=== PATIENT | male | born 1945 | race Caucasian/White ===

== ENCOUNTER 2016-10-03 12:32 | Day surgery (SDC) | payer MEDICARE, OTHER ==
[~2016-10-03] VITALS: Ht 190.5 cm; Wt 111.1 kg
--- NOTE | 2016-10-03 11:16 | PCM.HPANE ---
Patient Data Surgeon Admitting Provider: Attending Provider:Jaime Bourgeois MD Primary Care Physician:Nayeli Cook MD Other Provider:Fernanda Fair[place]ingham Anesthesia Reason for Visit Tubular Adenoma Of Colon Ht/WT & BMI Body Mass Index Allergies Coded Allergies: No Known Allergies (Verified Allergy, Unknown, 04/30/14) Past Anesthesia History Anesthesia History: Denies:: Abnormal Airway (HX SPASMODIC DYSPHONIA), Anesthesia Reactions, Malignant Hyperthermia Diabetes History Hx Diabetes?: No MRSA MRSA: No Medications Blood Thinner: Aspirin Reported Medications Triamcinolone Acet (Triamcinolone Acetonide Cream)1 Applic/0.25 Gm Cr1 Applic EXT BID #60 GM Ref 0 10/02/16 Aspirin (Aspir 81)81 Mg Tablet.dr81 Mg PO DAILY Ref 0 04/29/14 Simvastatin 20 Mg [id number] Mg PO HS 30 Days Ref 0 04/29/14 Clotrimazole (Antifungal)30 Gm Cream..g.30 Gm TP BID 04/29/14 Methocarbamol (Robaxin-750)750 Mg [id number] Mg PO TID PRN For Spasm 04/29/14 Ca Cmb No.1/Vit D3/B-6/FA/B12 (Vitamin D3 1,000 Unit Tablet)1 Each Tablet1,000 Each PO DAILY 30 Days 04/29/14 Garlic (Odorless Garlic)1,250 Mg Tablet1,250 Mg PO DAILY 04/29/14 Multivitamin (Daily Vitamin)1 Each Tablet1 Each PO DAILY 04/29/14 Discontinued Reported Medications Hydrocodone-Acetaminophen 5-325 mg 1 Each Tablet1 Each PO Q6 PRN For Pain Ref 0 04/29/14 History History of ENT Problems?: Yes HEENT History: Denies:: Abnormal Airway (HX SPASMODIC DYSPHONIA) Hx of Heart Problems?: Yes Cardiovascular History: Denies:: Congestive Heart Failure Hypertension (HYPERLIPIDEMIA) Hx of Respiratory Problem?: No Respiratory History: Denies:: Tuberculosis Use of C-PAP Machine Hx Neurologic Problems?: No Hx of GI Problems?: Yes Gastrointestinal History: Denies:: Rectal Bleeding (HX COLON POLYPS, HEMORRHOIDS) Hx of Problems?: Yes Male Hx: Positive for:: Prostate Problems (BPH W/ LUTS) Denies:: Scrotal Mass Testicular Surgery Skin History: Positive for:: History Skin Disorders? (02/2014 INGROWN TOENAIL ) Denies:: Pressure Ulcers Hx Musculoskeletal Problems?: Yes Musculoskeletal History: Denies:: Back Injury (C/OF BACK PAIN HX COMPRESSION FX X2) Hx Surgeries?: Yes (APPTom,LAMI) Hx Any Other Health Problems?: Yes Other History: Denies:: Cancer Endocrine Disease Hospitalization Thyroid Disease History Blood Transfusions: Denies:: Blood Transfusions Hx Diabetes: No Hx Alcohol Use: Yes (COUPLE COCKTAILS DAILY)Hx Substance Use: NoHave You Smoked inLast 12 mo: No Stop/Bang Treated for Sleep Apnea?: No Do You Have a CPAP Machine?: No S-Snoring: Do You Snore Loudly: No T-Tired: feel tired, fatigued: No P-Blood Pressure: treated: No B- Body Mass Index > 35 kg/m2: No A- Age over 50: Yes N- Neck Large Circumference: Yes G- Gender Male: Yes LOIS Risk Assessment: High Risk, =/>3 Yes Risk Assessment Category Category 1A: Patient has history of documented sleep apnea, and HAS NOT received any narcotic, sedative or anesthesia administration during this stay. Category 1B: Patient has history of documented sleep apnea, and HAS received any narcotic , sedative or anesthesia administration during this stay Category 2: Patient has SUSPECTED Obstructive Sleep Apnea, and HAS received any narcotic , sedative or anesthesia administration during this stay. Category 3: Patient has SUSPECTED Obstructive Sleep Apnea and HAS NOT received narcotic, sedative or anesthesia administration during this stay. Category 4: Outpatient in Procedural Areas with known sleep apnea or who screen positive for High Risk via the STOP/BANG questionnaire. Exam Exam General Appearance: Alert, Oriented X3, Cooperative, No Acute Distress HEENT/AIRWAY: MP 3 Lungs: Clear to Auscultation, Normal Air Movement Heart: Exam Unremarkable, Regular Rate/Rhythm, No Murmurs/Rubs/Gallops Plan Impression Patient chart reviewed, patient interviewed and anesthestic plan with risks, benefits, and alternatives discussed, and informed consent obtained. NPO Status: 05/03/15 0330 water ASA Physical Status: ASA2 Mod Systemic Disease Anesthetic Plan: MAC Bene/Risks/Altern/Consents: Yes HP Complete Prior to Induction: Yes Marv Bundy MD Oct 03, 2016 11:16
[~2016-10-03 12:32] MED LIST: ASPI-628 PO; CA C1TAB28 PO; CLOT30CR TP; GARL1250 PO; KEN25CR EXT; Lactated Ringer's 1,000 ML IV ONE; METH-313 PO; MULT-56 PO; SIMV20TA4 PO
[2016-10-03] MEDS ORDERED: fentaNYL-PF 50 mCg/mL 2 mL Inj ONE (12:33)
[2016-10-03] MEDS ORDERED: Propofol 10,000 mCg/mL 20 mL Inj ONE (12:33)
[2016-10-03 12:53] VITALS: BP 149/102; PULSE 80; RESP 14; O2SAT 99
[2016-10-03] MEDS ORDERED: Lactated Ringer's 1,000 ML IV SCH (14:23)
[2016-10-03] MEDS ORDERED: MetoCLOpramide 5 mg/mL 2 mL Inj IVPUSH PRN (14:25)
[2016-10-03] MEDS ORDERED: Ondansetron 2 mg/mL 2 mL Inj IVPUSH PRN (14:25)
[2016-10-03 15:05] VITALS: BP 117/81; PULSE 63; RESP 16; O2SAT 95
[2016-10-03 15:14] VITALS: BP 119/83; PULSE 74; RESP 16; O2SAT 95
--- NOTE | 2016-10-03 15:20 | PCM.ANEP1 ---
Post Anesthesia Phase 1 PACU Phase 1 Assessment Vital Signs Vital Signs Date Time Temp Pulse Resp B/P Pulse Ox O2 Delivery O2 Flow Rate FiO2 10/03/16 15:14 74 16 119/83 95 Room Air 10/03/16 15:05 63 16 117/81 95 Room Air 10/03/16 12:53 36.5 80 14 149/102 99 Room Air Anesthetic Administered: MAC Level of Alertness: Awake, talking SHEPARD's with Equal Strength: Yes Pain: No Nausea or Vomiting: No Oxygen Delivery: Room Air Lungs: Clear to Auscultation, Normal Air Movement Dermatome Level: Full Sensation Marv Bundy MD Oct 03, 2016 15:20
--- NOTE | 2016-10-03 15:25 | PCM.ANEP2 ---
Post Anesthesia Evaluation ASA/CMS Post Anesthesia VS in Patient's Normal Range?: Yes Resp Stable; Airway Patent?: Yes CV Function & Hydration Stable: Yes Mental Status Recovered?: Yes Pain control Satisfactory?: Yes N/V Control Satisfactory?: Yes Marv Bundy MD Oct 03, 2016 15:25
--- NOTE | 2016-10-03 20:14 | ENDO ---
[address] [address] ENDOSCOPY PROCEDURE PATIENT: LINDA MCDONOUGH : 1945 MR#: [id number] ADMIT: 10/03/2016 JOB ID: [id number] DATE: 10/03/2016 PRIMARY CARE PHYSICIAN: Nayeli Cook MD PROCEDURE: Colonoscopy with anesthesia. INDICATIONS: The patient is a 71-year-old man with a history of a two adenomas polyps in his ascending colon found on his last screening colonoscopy in 2005. EQUIPMENT: [employer] H 180 AL. SEDATION: Monitored anesthesia care was provided by Anesthesia personnel. PREPARATION QUALITY: Good. COMPLICATIONS: None identified. PROCEDURE INFORMATION: The patient was brought into the endoscopy suite and placed in left lateral decubitus position. Sedation was achieved by the anesthesiologist. Digital rectal exam was performed and unremarkable. The scope was then introduced through the anus and advanced under direct visualization through to the cecum. The ileocecal valve and appendiceal orifice were both identified and photographed. The ileocecal valve was intubated. Preparation quality was good. There was pancolonic diverticulosis but otherwise no abnormalities identified. The scope was then slowly withdrawn, carefully examining the mucosa for any defects or polyps. Retroflexed views were obtained in the rectum. The patient tolerated the entire procedure well without evident complication. FINDINGS: Pancolonic diverticulosis. RECOMMENDATIONS: The patient can consider repeat screening colonoscopy in 10 years depending upon his state of health.
== END 2016-10-03 23:59 | disposition home or self-care (01) ==
LOC: END 12:32
PROVIDERS: ATTEND General Practice
DX: Z12.11 Encounter for screening for malignant neoplasm of colon (principal); Z86.010 Personal history of colon polyps; K57.30 Diverticulosis of large intestine without perforation or abscess without bleeding; N40.0 Benign prostatic hyperplasia without lower urinary tract symptoms; E78.5 Hyperlipidemia, unspecified; M54.9 Dorsalgia, unspecified; Z79.891 Long term (current) use of opiate analgesic; Z79.82 Long term (current) use of aspirin
CPT/HCPCS: G0105; J2250; J3010; J7120